=== PATIENT | female | born 1990 | race Caucasian/White ===

== ENCOUNTER 2018-03-23 16:54 | Emergency (ER) | payer OTHER ==
[~2018-03-23] VITALS: Ht 162.6 cm; Wt 70.3 kg
--- NOTE | 2018-03-23 17:22 | Emergency Room Report ---
History of Present Illness General Chief Complaint: Lower Extremity Injury Source: Patient Present Illness HPI 28-year-old female patient presents ER complaining of left knee pain for the past 2 weeks. Patient reports she began working out recently and is pinning symptoms began. Reports pain begins in her superior anterior knee and spread Monday. Denies redness or swelling. Reports able to ambulate without difficulty. Denies acute injury or trauma. Reports took ibuprofen "a few times " but has not taken anything recently pain symptoms. Reports pain is worse with prolonged bending. Denies fever, chest pain, shortness of breath Allergies: Uncoded Allergies: SEASONAL (Allergy, Unknown, 03/23/18) Patient History Past Medical History: see triage record Now: No Reviewed Nursing Documentation: PMH: Agreed; PSxH: Agreed Nursing Documentation-PMH Past Medical History: No Stated History Review of Systems All Other Systems: negative except mentioned in HPI Physical Exam Vital Signs Date Time Temp Pulse Resp B/P (MAP) Pulse Ox O2 Delivery O2 Flow Rate FiO2 03/23/18 17:08 97.9 74 20 122/92 97 Room Air Sp02 EP Interpretation: reviewed, normal General Appearance: well appearing, no apparent distress, alert, GCS 15, non- toxic Head: normocephalic, atraumatic Eyes: bilateral eye normal inspection, bilateral eye PERRL ENT: hearing grossly normal, normal pharynx, no angioedema, normal voice, uvula midline, moist mucus membranes Neck: full range of motion Respiratory: lungs clear, normal breath sounds, no rhonchi, no respiratory distress, no accessory muscle use, no wheezing, speaking full sentences Cardiovascular #1: regular rate, rhythm, no edema Musculoskeletal: back normal, digits/nails normal, gait/station normal, normal range of motion, non-tender, no calf tenderness, Angelica's Sign negative, other - no laxity with varus or valgus stress, no erythema, no edema, no crepitus Neurologic: alert, oriented x3, responsive, motor strength/tone normal, sensory intact Psychiatric: mood/affect normal Skin: no rash Medical Decision Making PA Attestation Dr. Roth is my supervising Physician whom patient management has been discussed with. Diagnostic Impression: Primary Impression: Knee sprain ER Course Pt. presents to the ED c/o left knee pain. Ddx considered but are not limited to fracture, sprain, strain, contusion, dislocation. No erythema, no warmth to touch, no fever, nontoxic appearing, low suspicion for septic joint. Soft compartments, no pulselessness, no pallor, no paresthesias, low suspicion for compartment syndrome at this time. Vital signs: are WNL, pt. is afebrile Ordered X-ray and pain medication. ER COURSE Provided with pain medication. An X-ray of the left knee shows no acute fracture per the preliminary reading. likely sprain from overuse, advised patient to follow-up with primary care provider and discuss need for MRI imaging. [place] wrap was applied to the left knee and was checked afterwards by me showing good alignment and support with distal neurovascular functioning intact. Crutches declined. Patient instructed on RICE method: rest, ice, compression, elevation. Patient instructed on rest, ice and heat. Patient instructed to be WBAT Contact information for orthopedic urgent care provided, follow-up with urgent care if unable to followup with primary care provider and get referral to cad application support specialist. Followup with primary care provider. Discuss referral to ortho/pain management/ PT as needed. Discuss further imaging with MRI/CT as needed. DISCHARGE: -Rx provided for Tylenol for pain symptoms. At this time pt. is stable for d/c to home. Patient is resting comfortably, in no acute distress, nontoxic appearing, talking without difficulty. Will provide printed patient care instructions, and any necessary prescriptions. Patient instructed to follow with primary care provider in 3 - 5 days and to request further follow-up as needed. Care plan and follow up instructions have been discussed with the patient prior to discharge. Take medications as directed. Patient questions asked and answered. Patient reports understanding and agreement to treatment plan. ER precautions given, patient instructed to return to ER immediately for any new or worsening of symptoms. - Please note that this Emergency Department Report was dictated using [employer] analyst technology software, occasionally this can lead to erroneous entry secondary to interpretation by the dictation equipment. Other X-Ray Diagnostic Results Other X-Ray Diagnostic Results : X-Ray ordered: left knee # of Views/Limited Vs Complete: 3 View Indication: Pain EP Interpretation: Yes PA Xray: Interpretation reviewed, by supervising MD, and agrees with findings. Interpretation: no dislocation, no soft tissue swelling, no fractures Impression: No acute disease PA Scribe Text Giovanny Prabhakar PA-C Last Vital Signs Date Time Temp Pulse Resp B/P (MAP) Pulse Ox O2 Delivery O2 Flow Rate FiO2 03/23/18 17:08 97.9 74 20 122/92 97 Room Air Status: improved Disposition: HOME, SELF-CARE Condition: Stable Scripts Acetaminophen* (TYLENOL EXTRA STRENGTH*) 500 Mg Tablet 500 MG ORAL Q8H PRN for Prn Headache/Temp > 101, #30 TAB 0 Refills Prov: Jalen Prabhakar 03/23/18 Patient Instructions: Knee Sprain Additional Instructions: Patient instructed to follow up with primary care provider and discuss further referral to orthopedics/physical therapy/pain management as needed. Discuss need for MRI. If unable to followup with PCP, followup with orthopedic urgent care in 5-7 days , call to schedule appointment. Patient instructed on RICE method: rest, ice, compression, elevation. Patient instructed to WBAT. Take medications as directed. Patient questions asked and answered. ER precautions given, patient instructed to return to ER immediately for any new or worsening of symptoms. [facility] [address] [facility] [address] [facility], [id number] [email or web address] Jalen Prabhakar Mar 23, 2018 17:22
[2018-03-23] MEDS ORDERED: Acetaminophen 500mg (ES) tab ORAL ONE (17:30)
[2018-03-23] MEDS ORDERED: TYLENOL EXTRA500 MG ORAL (18:00)
--- NOTE | 2018-03-23 18:00 | Diagnostic Imaging Report ---
EXAM: XR Left Knee, 3 views CLINICAL HISTORY: PAIN TECHNIQUE: Three views of the left knee. COMPARISON: No relevant prior studies available. FINDINGS: Bones/joints: No acute fracture or malalignment. Soft tissues: Unremarkable. IMPRESSION: No acute fracture or malalignment.
[2018-03-23 18:14] VITALS: BP 117/78
== END 2018-03-23 18:14 | disposition home or self-care (01) ==
LOC: EMR 18:14
DX: S83.92XA Sprain of unspecified site of left knee, initial encounter (principal); X50.9XXA Other and unspecified overexertion or strenuous movements or postures, initial encounter; Y92.9 Unspecified place or not applicable
CPT/HCPCS: 99283